=== PATIENT | male | born 1990 | race Caucasian/White ===

== ENCOUNTER 2021-07-25 21:48 | Outpatient (CLI) | payer SELFPAY ==
[2021-07-26 00:11] LABS: Chlamydia Trachomatis by PCR Negative (Negative); Neisserai gonorrhoeae by PCR Negative (Negative); Probe Check PASS; Sample Adequacy Control PASS; Specimen Processing Control PASS
== END 2021-07-25 23:59 | disposition short-term general hospital (02) ==
PROVIDERS: PCP Family Medicine; Visit Provider Physician Assistant
DX: R30.9 Painful micturition, unspecified (principal)
CPT/HCPCS: 87491; 87591